=== PATIENT | male | born 1960 | race Two or more races ===

== ENCOUNTER 2024-09-20 16:23 | Inpatient (IN) | payer MEDICARE, MEDICAID ==
[~2024-09-20] VITALS: Ht 170.2 cm; Wt 73.1 kg
[2024-09-20] MEDS: IV NS 0.9% 1,000 ML BAG IV ONE (17:10)
[2024-09-20] MEDS: PIPERACILLIN /TAZOBACTAM 3.375 G in IV D5W 50 ML IV ONE (17:15)
[2024-09-20 17:41] LABS: BASOPHILS % (AUTO) 0.3 % (0.0-2.0); HEMATOCRIT 44 % (39-51); HEMOGLOBIN 14.5 g/dL (13.5-17.5); LYMPHOCYTES # (AUTO) 0.9 K/uL (0.8-4.8); LYMPHOCYTES % (AUTO) 8.4 % (20.0-44.0); MEAN CORPUSCULAR HEMOGLOBIN 28 PG (26.0-33.0); MEAN CORPUSCULAR HGB CONC 33 g/dl (31.0-36.0); MEAN CORPUSCULAR VOLUME 86 fL (80-96); MONOCYTES # (AUTO) 1.1 K/uL (0.1-1.30); MONOCYTES % (AUTO) 9.7 % (2.0-12.0); NEUTROPHILS # (AUTO) 9.2 K/uL (1.8-8.9); NEUTROPHILS % (AUTO) 81.6 % (43.0-81.0); PLATELET COUNT (AUTO) 385 K/uL (150-450); RED BLOOD CELL COUNT(AUTO) 5.14 MIL/uL (4.5-6.0); RED CELL DISTRIBUTION WIDTH 14.1 % (11.5-15.0); WHITE BLOOD COUNT (AUTO) 11.3 K/uL (4.3-11.0)
[2024-09-20 17:52] LABS: APPEARANCE,URINE CLEAR (CLEAR); BILIRUBIN,URINE NEGATIVE (NEGATIVE); BLOOD, URINE NEGATIVE Ery/uL (NEGATIVE); COLOR,URINE YELLOW (YELLOW); KETONES,URINE TRACE mg/dL (NEGATIVE); LEUKOCYTE ESTERASE ,URINE NEGATIVE (NEGATIVE); NITRITE, URINE NEGATIVE (NEGATIVE); PH,URINE 5.5 (5.0-8.0); PROTEIN,URINE 1+ mg/dl (NEGATIVE); UGLUCOSE NEGATIVE (NEGATIVE); UROBILINOGEN,URINE 0.2 EU/dL (0.2)
[2024-09-20 17:54] LABS: INR 1.03 (0.91-1.10); PARTIAL THROMBOPLASTIN TIME 28.9 SEC (24.3-34.3); PROTHROMBIN TIME 10.9 SECS (9.2-11.1)
[2024-09-20 17:59] LABS: ALANINE AMINOTRANSFERASE 36 U/L (12-78); ALBUMIN 5.5 g/dL (3.4-5.0); ALKALINE PHOSPHATASE 165 U/L (46-116); ASPARTATE AMINOTRANSFERASE 61 U/L (15-37); BILIRUBIN,DIRECT 0.3 mg/dL (0.0-0.2); BILIRUBIN,TOTAL 1.1 mg/dL (0.2-1.0); CALCIUM, SERUM 10.7 mg/dL (8.5-10.1); CARBON DIOXIDE 31 mmol/L (21-32); CHLORIDE 98 mmol/L (98-107); CREATININE 3.1 mg/dL (0.6-1.3); GLUCOSE 146 mg/dL (74-106); POTASSIUM 4.5 mmol/L (3.5-5.1); SODIUM SERUM 140 mmol/L (136-145); TOTAL PROTEIN, SERUM 11.6 g/dL (6.4-8.2); UREA NITROGEN, BLOOD 74 mg/dL (7-18)
[2024-09-20 18:04] LABS: LACTIC ACID 2.8 mmol/L (0.4-2.0)
[2024-09-20] MEDS ORDERED: LORAZEPAM INJ 2 MG/ML VIAL ONE (18:06)
[2024-09-20] MEDS ORDERED: CICL60SU2 TP (18:08)
[2024-09-20] MEDS ORDERED: LACT100027 GT (18:08)
[2024-09-20] MEDS ORDERED: TRIA80CR12 TP (18:08)
[2024-09-20] MEDS ORDERED: CLON0.5T4 GT (18:08)
[2024-09-20] MEDS ORDERED: HYDR-500 GT (18:08)
[2024-09-20 18:09] LABS: BACTERIA,URINE Moderate /HPF (None Seen)
[2024-09-20] MEDS ORDERED: SCOP1PAT11 TP (18:09)
[2024-09-20] MEDS ORDERED: CRAN300T GT (18:09)
[2024-09-20] MEDS ORDERED: LEVE500S9 GT (18:09)
[2024-09-20] MEDS ORDERED: DOCU-141 GT (18:09)
[2024-09-20] MEDS ORDERED: TRAZ-182 GT (18:09)
[2024-09-20] MEDS ORDERED: DIPH25TA27 GT (18:09)
[2024-09-20] MEDS ORDERED: CHLO473M2 PO (18:09)
[2024-09-20] MEDS ORDERED: LANS30CA56 GT (18:09)
[2024-09-20] MEDS ORDERED: POTASSIUM CHLORIDE GT (18:09)
[2024-09-20] MEDS ORDERED: GUAI100S9 GT (18:09)
[2024-09-20] MEDS ORDERED: ACET325T53 GT ×2 (18:09)
[2024-09-20] MEDS ORDERED: MULT-594 GT (18:09)
[2024-09-20] MEDS ORDERED: ASCO-352 GT (18:09)
[2024-09-20] MEDS ORDERED: ASPI-1169 GT (18:09)
[2024-09-20] MEDS ORDERED: LEVA0.6320 IH (18:09)
[2024-09-20] MEDS ORDERED: MAGN400O6 GT (18:09)
[2024-09-20] MEDS ORDERED: BACL20TA GT (18:09)
[2024-09-20 18:10] LABS: MUCUS,URINE Moderate /LPF (None Seen)
[2024-09-20 18:11] LABS: ADD URINE CULTURE YES; CALCIUM OXALATE CRYSTALS,UR Few /HPF (None Seen); RBC,URINE 0-2 /HPF (0-2); SQUAMOUS EPITHELIAL CELL,UR Rare /HPF (None Seen); WBC,URINE 0-2 /HPF (0-3)
[2024-09-20] MEDS: LORAZEPAM INJ 2 MG/ML VIAL IV ONE (18:30)
[2024-09-20 18:50] VITALS: O2SAT 95
[2024-09-20] MEDS: VANCOMYCIN 1 GM in IV D5W 250 ML IV ONE (19:30)
[2024-09-20 21:50] VITALS: BP 158/66; TEMP 98.7; O2SAT 99
[2024-09-20 22:47] VITALS: O2SAT 99
[2024-09-20] MEDS ORDERED: MAGNESIUM HYDROXIDE 30 ML UDC PO PRN (23:00)
[2024-09-20] MEDS ORDERED: ACETAMINOPHEN 325 MG TABLET PO PRN (23:00)
[2024-09-20] MEDS ORDERED: ZOLPIDEM TARTRATE 5 MG TABLET PO PRN (23:00)
[2024-09-20] MEDS ORDERED: ONDANSETRON HCL/PF 4 MG/2 ML VIAL IVP PRN (23:00)
[2024-09-20] MEDS ORDERED: MAG HYDROX/AL HYDROX/SIMETH 30 ML UDC PO PRN (23:00)
[2024-09-21] VITALS (17 sets, daily range): BP systolic 102–154; BP diastolic 71–90; TEMP 97.7–99.2; O2SAT 95–100
[2024-09-21] MEDS ORDERED: GUAIFENESIN 300 MG/15 ML UDC GT PRN
[2024-09-21] MEDS ORDERED: MAGNESIUM HYDROXIDE 30 ML UDC GT PRN
[2024-09-21] MEDS: PIPERACI/TAZO 3.375GM/D5W 50ML PB IV ONE ×2 (00:36→06:06)
[2024-09-21] MEDS: IV 1/2NS 1000 ML 1,000 ML IV PRN (00:42)
[2024-09-21] MEDS: ZOSYN IVPB 3.375 G in IV D5W 50ml IV SCH (00:42)
[2024-09-21] MEDS ORDERED: ALBUTEROL HALF STRENGTH 1.25 MG/3 ML VIAL.NEB NEB PRN (01:00)
[2024-09-21] MEDS ORDERED: DIPHENHYDRAMINE HCL 12.5 MG/5 ML UDC GT PRN (01:00)
[2024-09-21] MEDS: LACTULOSE 10 G/15 ML UDC (PYXIS) PO SCH (01:27)
[2024-09-21] MEDS: BACLOFEN (10 MG) 10 MG TABLET PO SCH (02:05)
[2024-09-21] MEDS: ALBUTEROL FS 2.5 MG/3 ML VIAL.NEB NEB SCH (02:30)
[2024-09-21] MEDS: IPRATROPIUM NEB FS 0.5 MG/2.5 ML AMPUL.NEB NEB SCH (02:30)
[2024-09-21 07:04] LABS: BASOPHILS % (AUTO) 0.4 % (0.0-2.0); HEMATOCRIT 35 % (39-51); HEMOGLOBIN 11.9 g/dL (13.5-17.5); LYMPHOCYTES # (AUTO) 0.8 K/uL (0.8-4.8); LYMPHOCYTES % (AUTO) 9.3 % (20.0-44.0); MEAN CORPUSCULAR HEMOGLOBIN 29 PG (26.0-33.0); MEAN CORPUSCULAR HGB CONC 34 g/dl (31.0-36.0); MEAN CORPUSCULAR VOLUME 87 fL (80-96); MONOCYTES % (AUTO) 11.6 % (2.0-12.0); NEUTROPHILS # (AUTO) 6.5 K/uL (1.8-8.9); NEUTROPHILS % (AUTO) 78.7 % (43.0-81.0); PLATELET COUNT (AUTO) 314 K/uL (150-450); RED BLOOD CELL COUNT(AUTO) 4.05 MIL/uL (4.5-6.0); RED CELL DISTRIBUTION WIDTH 14.3 % (11.5-15.0); WHITE BLOOD COUNT (AUTO) 8.2 K/uL (4.3-11.0)
[2024-09-21 07:54] LABS: CALCIUM, SERUM 9.6 mg/dL (8.5-10.1); CREATININE 1.7 mg/dL (0.6-1.3); MAGNESIUM 2.9 mg/dL (1.8-2.4); PHOSPHORUS 3.4 mg/dL (2.5-4.9); POTASSIUM 4.1 mmol/L (3.5-5.1)
[2024-09-21] MEDS: LEVETIRACETAM SOL (5 ML) 100 MG/ML UDC GT SCH (08:46)
[2024-09-21] MEDS: BACLOFEN (10 MG) 10 MG TABLET GT SCH (08:46)
[2024-09-21] MEDS: ASPIRIN 81 MG TAB.CHEW GT SCH (08:46)
[2024-09-21] MEDS: PANTOPRAZOLE 40 MG/PACK PACK GT SCH (08:47)
[2024-09-21] MEDS: ASCORBIC ACID 500 MG TABLET GT SCH (08:47)
[2024-09-21] MEDS: PANTOPRAZOLE 40 MG VIAL IV SCH (08:47)
[2024-09-21] MEDS: clonazePAM 0.5 MG TABLET GT SCH (08:47)
[2024-09-21] MEDS: MULTIVITAMINS,THERAGRAN 1 UDTAB TABLET GT SCH (08:47)
[2024-09-21] MEDS: HEPARIN SODIUM, PORCINE 5000 UNITS/1 ML VIAL SQ SCH (08:50)
[2024-09-21] MEDS: TRIAMCINOLONE ACETONIDE 0.1% CR 15 GM TUBE TP SCH (08:51)
[2024-09-21] MEDS: Z GUARD REMEDY 4 OZ OINT TP PRN (08:52)
[2024-09-21] MEDS ORDERED: CICLOPIROX OLAMINE TP SCH (09:00)
[2024-09-21] MEDS: hydrOXYzine HCL SYRUP 10 MG/5 ML UDC GT SCH (09:44)
[2024-09-21 09:59] LABS: THYROID STIMULATING HORMONE 0.86 uIU/mL (0.358-3.74)
[2024-09-21] MEDS: ZOSYN IVPB 2.25 G in IV D5W 50ml IV SCH (13:03)
[2024-09-21] MEDS: JEVITY 1.2 CAL 1,000 ML BOTTLE GT PRN (14:20)
[2024-09-21] MEDS ORDERED: Medication Not On Formulary EA (Cranberry Extract (Cranberry) 450 MG) GT SCH (18:00)
[2024-09-21] MEDS: DOCUSATE SODIUM LIQ 100 MG/10 ML UDC GT SCH (21:03)
[2024-09-21] MEDS: TRAZODONE 50 MG TABLET GT SCH (21:03)
[2024-09-22] VITALS (17 sets, daily range): BP systolic 120–132; BP diastolic 72–88; TEMP 97.3–97.9; O2SAT 96–100
[2024-09-22 08:14] LABS: CREATININE, URINE 185.5 MG/DL (30.0-125.0); URINE SODIUM, RANDOM < 5 mmol/l (40-220); URINE TOTAL PROTEIN 65.3 mg/dL (0-11.9)
[2024-09-22] MEDS: VANCOMYCIN 1 GM in IV D5W 250ml IV SCH ×2 (08:57→19:56)
[2024-09-22 10:12] LABS: BASOPHILS % (AUTO) 0.6 % (0.0-2.0); EOSINOPHILS # (AUTO) 0.1 K/uL (0.0-0.7); EOSINOPHILS % (AUTO) 1.8 % (0.0-6.0); HEMATOCRIT 36 % (39-51); HEMOGLOBIN 11.9 g/dL (13.5-17.5); LYMPHOCYTES % (AUTO) 20.5 % (20.0-44.0); MEAN CORPUSCULAR HEMOGLOBIN 29 PG (26.0-33.0); MEAN CORPUSCULAR HGB CONC 33 g/dl (31.0-36.0); MEAN CORPUSCULAR VOLUME 87 fL (80-96); MONOCYTES # (AUTO) 0.5 K/uL (0.1-1.30); MONOCYTES % (AUTO) 11.2 % (2.0-12.0); NEUTROPHILS # (AUTO) 3.1 K/uL (1.8-8.9); NEUTROPHILS % (AUTO) 65.9 % (43.0-81.0); PLATELET COUNT (AUTO) 301 K/uL (150-450); RED BLOOD CELL COUNT(AUTO) 4.14 MIL/uL (4.5-6.0); RED CELL DISTRIBUTION WIDTH 14.5 % (11.5-15.0); WHITE BLOOD COUNT (AUTO) 4.8 K/uL (4.3-11.0)
[2024-09-22 10:30] LABS: ALBUMIN 3.8 g/dL (3.4-5.0); BILIRUBIN,TOTAL 0.4 mg/dL (0.2-1.0); CREATININE 0.9 mg/dL (0.6-1.3); PHOSPHORUS 2.4 mg/dL (2.5-4.9); POTASSIUM 3.9 mmol/L (3.5-5.1); TOTAL PROTEIN, SERUM 8.8 g/dL (6.4-8.2)
[2024-09-22] MEDS: NEUTRA PHOS 1 POWD.PACKET NG ONE (16:46)
[2024-09-23] VITALS (15 sets, daily range): BP systolic 117–135; BP diastolic 77–83; TEMP 97.3–98.5; O2SAT 96–100
[2024-09-23 08:08] LABS: PTH, INTACT 27 pg/mL (15-65)
[2024-09-23 10:36] LABS: BASOPHILS % (AUTO) 0.5 % (0.0-2.0); EOSINOPHILS # (AUTO) 0.2 K/uL (0.0-0.7); EOSINOPHILS % (AUTO) 4.4 % (0.0-6.0); HEMATOCRIT 34 % (39-51); HEMOGLOBIN 11.3 g/dL (13.5-17.5); LYMPHOCYTES % (AUTO) 25.1 % (20.0-44.0); MEAN CORPUSCULAR HEMOGLOBIN 29 PG (26.0-33.0); MEAN CORPUSCULAR HGB CONC 33 g/dl (31.0-36.0); MEAN CORPUSCULAR VOLUME 88 fL (80-96); MONOCYTES # (AUTO) 0.5 K/uL (0.1-1.30); MONOCYTES % (AUTO) 12.3 % (2.0-12.0); NEUTROPHILS # (AUTO) 2.4 K/uL (1.8-8.9); NEUTROPHILS % (AUTO) 57.7 % (43.0-81.0); PLATELET COUNT (AUTO) 268 K/uL (150-450); RED BLOOD CELL COUNT(AUTO) 3.91 MIL/uL (4.5-6.0); RED CELL DISTRIBUTION WIDTH 14.2 % (11.5-15.0); WHITE BLOOD COUNT (AUTO) 4.1 K/uL (4.3-11.0)
[2024-09-23 10:50] LABS: ALBUMIN 3.2 g/dL (3.4-5.0); BILIRUBIN,TOTAL 0.2 mg/dL (0.2-1.0); CALCIUM, SERUM 8.4 mg/dL (8.5-10.1); CREATININE 0.7 mg/dL (0.6-1.3); MAGNESIUM 2.5 mg/dL (1.8-2.4); PHOSPHORUS 2.2 mg/dL (2.5-4.9); POTASSIUM 3.4 mmol/L (3.5-5.1); TOTAL PROTEIN, SERUM 7.4 g/dL (6.4-8.2)
[2024-09-23] MEDS: NEUTRA PHOS 1 POWD.PACKET GT ONE (18:01)
[2024-09-23] MEDS: IV 1/2NS 1000 ML 1,000 ML IV PRN (23:50)
[2024-09-24] VITALS (10 sets, daily range): BP systolic 106–131; BP diastolic 64–68; TEMP 98.5–98.9; O2SAT 96–100
[2024-09-24 05:10] LABS: *SPE A/G RATIO 0.8 (0.7-1.7); *SPE ALBUMIN 3.7 g/dL (2.9-4.4); *SPE ALPHA-1-GLOBULIN 0.3 g/dL (0.0-0.4); *SPE ALPHA-2-GLOBULIN 1.1 g/dL (0.4-1.0); *SPE BETA GLOBULIN 1.4 g/dL (0.7-1.3); *SPE GLOBULIN, TOTAL 4.6 g/dL (2.2-3.9); *SPE M-SPIKE Not Observed g/dL (Not Observed); *SPE PROTEIN TOTAL 8.3 g/dL (6.0-8.5); *SPEGAMMA GLOBULIN 1.9 g/dL (0.4-1.8)
[2024-09-24 07:32] LABS: CALCIUM, SERUM 9.1 mg/dL (8.5-10.1); CREATININE 0.4 mg/dL (0.6-1.3); PHOSPHORUS 2.5 mg/dL (2.5-4.9); POTASSIUM 3.5 mmol/L (3.5-5.1)
== END 2024-09-24 17:49 | DRG 640 ==
LOC: ER 16:43 → TELE 20:20 → MED 09-24 10:59
PROVIDERS: ADMIT Student in an Organized Health Care Education/Training Program; ATTEND Nurse Practitioner Acute Care
DX: E86.0 Dehydration (principal); G92.8 Other toxic encephalopathy; N17.0 Acute kidney failure with tubular necrosis; G93.1 Anoxic brain damage, not elsewhere classified; J96.10 Chronic respiratory failure, unspecified whether with hypoxia or hypercapnia; E87.20 Acidosis, unspecified; Z93.0 Tracheostomy status; G40.909 Epilepsy, unspecified, not intractable, without status epilepticus; K56.41 Fecal impaction; Z93.1 Gastrostomy status; R13.10 Dysphagia, unspecified; Z86.74 Personal history of sudden cardiac arrest; N18.2 Chronic kidney disease, stage 2 (mild); I12.9 Hypertensive chronic kidney disease with stage 1 through stage 4 chronic kidney disease, or unspecified chronic kidney disease; M89.8X9 Other specified disorders of bone, unspecified site; E87.6 Hypokalemia; D64.9 Anemia, unspecified; Z88.8 Allergy status to other drugs, medicaments and biological substances; Z79.51 Long term (current) use of inhaled steroids; Z79.82 Long term (current) use of aspirin; Z79.899 Other long term (current) drug therapy; E83.41 Hypermagnesemia
CPT/HCPCS: 31720; 36415; 70450-TC; 71045-TC; 76770-TC; 80048-TC; 80053-TC; 80076-TC; 80202-TC; 81001; 82550-TC; 82570-TC; 83605-TC; 83735-TC; 83970; 84100-TC; 84155; 84165; 84300-TC; 84443-TC; 84484-TC; 85025-TC; 85730-TC; 87040-TC; 87081-TC; 87086-TC; 94640-TC; 94762-TC; 94799-TC; 99082-TC; A4223; A4623; A6403; G0378; J1644; J1953; J2060; J2470; J2543; J3370; J3490; J7030; J7060; Q0163; Q0177

== ENCOUNTER 2024-11-10 03:11 | Inpatient (IN) | payer MEDICARE, OTHER ==
[2024-11-10] VITALS (10 sets, daily range): BP systolic 138–142; BP diastolic 90–93; TEMP 98.2–99; O2SAT 94–99
[~2024-11-10] VITALS: Ht 177.8 cm; Wt 73.5 kg
[~2024-11-10 03:11] MED LIST: ACET325T53 GT; ASCO-352 GT; ASPI-1169 GT; BACL20TA GT; CHLO473M2 PO; CICL60SU2 TP; CLON0.5T4 GT; CRAN300T GT; DIPH25TA27 GT; DOCU-141 GT; GUAI100S9 GT; HYDR-500 GT; LACT100027 GT; LANS30CA56 GT; LEVA0.6320 IH; LEVE500S9 GT; MAGN400O6 GT; MULT-594 GT; POTASSIUM CHLORIDE GT; SCOP1PAT11 TP; TRAZ-182 GT; TRIA80CR12 TP
[2024-11-10 04:08] LABS: BASOPHILS # (AUTO) 0.1 K/uL (0.0-0.2); BASOPHILS % (AUTO) 0.7 % (0.0-2.0); EOSINOPHILS # (AUTO) 1.7 K/uL (0.0-0.7); HEMATOCRIT 40 % (39-51); HEMOGLOBIN 13.1 g/dL (13.5-17.5); LYMPHOCYTES # (AUTO) 1.9 K/uL (0.8-4.8); LYMPHOCYTES % (AUTO) 22.8 % (20.0-44.0); MEAN CORPUSCULAR HEMOGLOBIN 29 PG (26.0-33.0); MEAN CORPUSCULAR HGB CONC 33 g/dl (31.0-36.0); MEAN CORPUSCULAR VOLUME 88 fL (80-96); MONOCYTES # (AUTO) 0.6 K/uL (0.1-1.30); MONOCYTES % (AUTO) 7.7 % (2.0-12.0); NEUTROPHILS # (AUTO) 4.1 K/uL (1.8-8.9); NEUTROPHILS % (AUTO) 48.8 % (43.0-81.0); PLATELET COUNT (AUTO) 344 K/uL (150-450); RED BLOOD CELL COUNT(AUTO) 4.51 MIL/uL (4.5-6.0); WHITE BLOOD COUNT (AUTO) 8.5 K/uL (4.3-11.0)
[2024-11-10 04:20] LABS: CALCIUM, SERUM 8.8 mg/dL (8.5-10.1); CREATININE 0.7 mg/dL (0.6-1.3)
[2024-11-10 04:22] LABS: INR 1.05 (0.91-1.10); PARTIAL THROMBOPLASTIN TIME 30.9 SEC (24.3-34.3); PROTHROMBIN TIME 11.1 SECS (9.2-11.1)
[2024-11-10] MEDS: KETAMINE HCL (500MG/10ML) 50 MG/ML VIAL IV ONE (05:15)
[2024-11-10] MEDS: PROPOFOL 200 MG/20 ML VIAL IV ONE (05:30)
[2024-11-10] MEDS ORDERED: PROPOFOL 20 ML IV ONE (05:44)
[2024-11-10] MEDS ORDERED: ONDANSETRON HCL/PF 4 MG/2 ML VIAL IVP PRN ×2 (06:30→11:30)
[2024-11-10] MEDS ORDERED: ACETAMINOPHEN 325 MG TABLET PO PRN ×2 (06:30→11:30)
[2024-11-10] MEDS ORDERED: Z GUARD REMEDY 4 OZ OINT TP PRN ×2 (06:30→11:30)
[2024-11-10] MEDS ORDERED: MAG HYDROX/AL HYDROX/SIMETH 30 ML UDC PO PRN ×2 (06:30→11:30)
[2024-11-10] MEDS: CEFEPIME 1 GM in IV D5W 50 ML IV SCH (06:30)
[2024-11-10] MEDS ORDERED: MAGNESIUM HYDROXIDE 30 ML UDC PO PRN ×2 (06:30→11:30)
[2024-11-10] MEDS ORDERED: VANCOMYCIN 1 GM /D5W 250 ML PB IV ONE (06:32)
[2024-11-10] MEDS ORDERED: PIPERACI/TAZO 3.375GM/D5W 50ML PB IV ONE (06:32)
[2024-11-10] MEDS: PIPERACILLIN /TAZOBACTAM 3.375 G in IV D5W 50 ML IV ONE (06:33)
[2024-11-10 08:12] LABS: ABG BASE EXCESS 3.6 mmol/L (-2.0-3.0); ABG OXYGEN SATURATION 98.8 % (94.0-98.0); ABG PCO2 41.6 mmHg (35.0-48.0); ABG PH 7.446 (7.350-7.450); ABG PO2 146.3 mmHg (83.0-108.0); ABG TOTAL HEMOGLOBIN 13.5 G/dL (13.5-17.5); COHb 0.3 % (0.5-1.5); MetHb 0.2 % (0.0-1.5); O2Hb 98.3 % (94.0-97.0)
[2024-11-10] MEDS ORDERED: VALP250S4 GT (08:24)
[2024-11-10] MEDS ORDERED: PHEN20EL5 GT (08:24)
[2024-11-10] MEDS ORDERED: ALBU2.5V13 NEB (08:24)
[2024-11-10] MEDS ORDERED: ALBU2.5V11 NEB (08:24)
[2024-11-10] MEDS ORDERED: IPRA0.2S9 IH ×2 (08:24)
[2024-11-10] MEDS ORDERED: AMIN30LI66 GT (08:24)
[2024-11-10] MEDS ORDERED: HYDR59LO7 TP (08:24)
[2024-11-10] MEDS ORDERED: LACT-209 GT (08:24)
[2024-11-10] MEDS ORDERED: ACET-2030 GT (08:24)
[2024-11-10] MEDS ORDERED: Medication Not On Formulary EA (Lansoprazole 30 MG) GT SCH (09:00)
[2024-11-10] MEDS: VANCOMYCIN 1 GM in IV D5W 250 ML IV ONE (09:00)
[2024-11-10 09:36] LABS: BASOPHILS % (AUTO) 0.2 % (0.0-2.0); EOSINOPHILS # (AUTO) 0.8 K/uL (0.0-0.7); EOSINOPHILS % (AUTO) 7.6 % (0.0-6.0); HEMATOCRIT 37 % (39-51); HEMOGLOBIN 12.4 g/dL (13.5-17.5); LYMPHOCYTES # (AUTO) 1.2 K/uL (0.8-4.8); LYMPHOCYTES % (AUTO) 11.3 % (20.0-44.0); MEAN CORPUSCULAR HEMOGLOBIN 29 PG (26.0-33.0); MEAN CORPUSCULAR HGB CONC 33 g/dl (31.0-36.0); MEAN CORPUSCULAR VOLUME 87 fL (80-96); MONOCYTES # (AUTO) 0.7 K/uL (0.1-1.30); MONOCYTES % (AUTO) 6.6 % (2.0-12.0); NEUTROPHILS # (AUTO) 7.8 K/uL (1.8-8.9); NEUTROPHILS % (AUTO) 74.3 % (43.0-81.0); PLATELET COUNT (AUTO) 351 K/uL (150-450); RED CELL DISTRIBUTION WIDTH 14.5 % (11.5-15.0); WHITE BLOOD COUNT (AUTO) 10.5 K/uL (4.3-11.0)
[2024-11-10] MEDS ORDERED: ZOLPIDEM TARTRATE 5 MG TABLET PO PRN (11:30)
[2024-11-10] MEDS: CHLORHEXIDINE GLUCONATE 15 ML UDC MM SCH (12:16)
[2024-11-10] MEDS: ASPIRIN 81 MG TAB.CHEW GT SCH (12:17)
[2024-11-10] MEDS: clonazePAM 0.5 MG TABLET GT SCH (12:17)
[2024-11-10] MEDS: VANCOMYCIN 750 MG in IV D5W 250 ML IV ONE (12:18)
[2024-11-10] MEDS: ENOXAPARIN SODIUM 40 MG/0.4 ML DISP.SYRIN SQ SCH (12:18)
[2024-11-10] MEDS: ASCORBIC ACID 500 MG TABLET GT SCH (12:19)
[2024-11-10] MEDS: JEVITY 1.2 CAL 1,000 ML BOTTLE GT SCH (13:36)
[2024-11-10] MEDS: LEVETIRACETAM SOL (5 ML) 100 MG/ML UDC GT SCH (16:18)
[2024-11-10] MEDS: BACLOFEN (10 MG) 10 MG TABLET GT SCH (16:18)
[2024-11-10] MEDS: CEFEPIME 2 GM in IV D5W 100 ML IV SCH (17:04)
[2024-11-10] MEDS ORDERED: Medication Not On Formulary EA (Cranberry Extract (Cranberry) 450 MG) GT SCH (18:00)
[2024-11-10] MEDS: TRAZODONE 50 MG TABLET GT SCH (21:29)
[2024-11-10] MEDS: DOCUSATE SODIUM LIQ 100 MG/10 ML UDC GT SCH (21:34)
[2024-11-10] MEDS ORDERED: DOCUSATE SODIUM 100 MG CAPSULE PO SCH (22:00)
[2024-11-11] VITALS (13 sets, daily range): BP systolic 96–154; BP diastolic 66–89; TEMP 97.9–99.1; O2SAT 96–98
[2024-11-11] MEDS: VANCOMYCIN HCL 1.25 GM in IV D5W 250 ML IV SCH (01:03)
[2024-11-11] MEDS: IV LR 1000 ML 1,000 ML IV PRN (02:22)
[2024-11-11 06:24] LABS: ABG BASE EXCESS 3.3 mmol/L (-2.0-3.0); ABG OXYGEN SATURATION 96.6 % (94.0-98.0); ABG PCO2 38.6 mmHg (35.0-48.0); ABG PH 7.465 (7.350-7.450); ABG PO2 83.2 mmHg (83.0-108.0); ABG TOTAL HEMOGLOBIN 12.5 G/dL (13.5-17.5); COHb 0.5 % (0.5-1.5); MetHb 0.1 % (0.0-1.5); SITE, ABG RIGHT BRACHIAL
[2024-11-11 07:30] LABS: BASOPHILS % (AUTO) 0.1 % (0.0-2.0); EOSINOPHILS # (AUTO) 0.7 K/uL (0.0-0.7); EOSINOPHILS % (AUTO) 8.3 % (0.0-6.0); HEMATOCRIT 35 % (39-51); HEMOGLOBIN 11.6 g/dL (13.5-17.5); LYMPHOCYTES # (AUTO) 1.2 K/uL (0.8-4.8); LYMPHOCYTES % (AUTO) 14.5 % (20.0-44.0); MEAN CORPUSCULAR HEMOGLOBIN 29 PG (26.0-33.0); MEAN CORPUSCULAR HGB CONC 33 g/dl (31.0-36.0); MEAN CORPUSCULAR VOLUME 87 fL (80-96); MONOCYTES # (AUTO) 0.9 K/uL (0.1-1.30); MONOCYTES % (AUTO) 11.1 % (2.0-12.0); NEUTROPHILS # (AUTO) 5.4 K/uL (1.8-8.9); PLATELET COUNT (AUTO) 280 K/uL (150-450); RED BLOOD CELL COUNT(AUTO) 4.04 MIL/uL (4.5-6.0); RED CELL DISTRIBUTION WIDTH 14.5 % (11.5-15.0); WHITE BLOOD COUNT (AUTO) 8.2 K/uL (4.3-11.0)
[2024-11-11 08:07] LABS: CALCIUM, SERUM 8.3 mg/dL (8.5-10.1); CREATININE 0.6 mg/dL (0.6-1.3); MAGNESIUM 2.1 mg/dL (1.8-2.4); PHOSPHORUS 2.5 mg/dL (2.5-4.9); POTASSIUM 3.7 mmol/L (3.5-5.1)
[2024-11-11] MEDS: PANTOPRAZOLE 40 MG TABLET.DR PO SCH (09:04)
[2024-11-11] MEDS: MULTIVITAMINS,THERAGRAN 1 UDTAB TABLET GT SCH (09:04)
[2024-11-12] VITALS (8 sets, daily range): BP systolic 107–145; BP diastolic 65–85; TEMP 97.8–98.6; O2SAT 96–98
[2024-11-12 10:15] LABS: CALCIUM, SERUM 8.4 mg/dL (8.5-10.1); CREATININE 0.5 mg/dL (0.6-1.3); POTASSIUM 3.4 mmol/L (3.5-5.1)
[2024-11-12] MEDS: ALBUTEROL FS 2.5 MG/3 ML VIAL.NEB NEB PRN (10:29)
[2024-11-13] MEDS ORDERED: SCOPOLAMINE PATCH 1 MG/72HR TD SCH (09:00)
== END 2024-11-12 16:45 | DRG 200 ==
LOC: ER 03:12 → TELE1 10:36
DX: T79.7XXA Traumatic subcutaneous emphysema, initial encounter (principal); G93.1 Anoxic brain damage, not elsewhere classified; J96.10 Chronic respiratory failure, unspecified whether with hypoxia or hypercapnia; J95.03 Malfunction of tracheostomy stoma; G40.909 Epilepsy, unspecified, not intractable, without status epilepticus; R13.10 Dysphagia, unspecified; Z93.1 Gastrostomy status; I10 Essential (primary) hypertension; Y84.8 Other medical procedures as the cause of abnormal reaction of the patient, or of later complication, without mention of misadventure at the time of the procedure; Y92.129 Unspecified place in nursing home as the place of occurrence of the external cause
CPT/HCPCS: 31720; 36415; 36600; 70490-TC; 71045-TC; 80048-TC; 80202-TC; 82803-TC; 83735-TC; 84100-TC; 85025-TC; 85730-TC; 87040-TC; 87081-TC; 94640-TC; 94760-TC; 94799-TC; A4223; A4623; A4624; G0378; J0692; J1650; J1953; J2543; J2704; J3370; J3371; J7030; J7050; J7060; J7120